=== PATIENT | female | born 1955 | race Caucasian/White ===

== ENCOUNTER 2021-01-30 13:58 | Outpatient (RCR) | payer MEDICARE, OTHER, SELFPAY ==
[2021-01-30 14:41] LABS: Abs Immature Grans 0.02 10^3/uL (0.0-0.06); Absolute Basophil Count 0.03 10^3/uL (0.0-0.2); Absolute Eosinophil Count 0.18 10^3/uL (0.0-0.7); Absolute Lymphocyte Count 1.75 10^3/uL (1.2-3.4); Absolute Neutrophil Count 3.62 10^3/uL (1.2-6.7); Basophils % 0.5; Eosinophils % 2.8; HCT 48.1 % (36.0-46.0); HGB 15.8 g/dL (11.2-15.7); Immature Grans % 0.3; Lymphocytes % 27.3; MCH 30.2 pg (27.0-33.0); MCHC 32.8 % (32.0-36.0); MCV 91.8 fL (80-95); MPV 8.8 fL (8.0-11.0); Monocytes % 12.5; Neutrophils % 56.6; Nucleated RBC 0 %; Platelet Count 224 10^3/uL (130-400); RBC 5.24 10^6/uL (3.93-5.22); RDW 13.4 % (11.7-14.6); RDW-SD 45.7 fL; Reticulocyte 1.1 % (0.5-2.4)
[2021-01-31 14:33] LABS: Erythropoietin 12.6 mIU/mL (2.6 - 18.5)
[2021-02-03 14:52] LABS: JAK2 Result see interpretation
== END 2021-02-14 23:59 | disposition home or self-care (01) ==
LOC: INF 13:58
PROVIDERS: Visit Provider Internal Medicine Hematology & Oncology
DX: D75.1 Secondary polycythemia (principal)
CPT/HCPCS: 36415; 82668; 81270; 85025; 85045